=== PATIENT | male | born 1990 | race Two or more races ===

== ENCOUNTER 2023-01-16 16:22 | Emergency (ER) | payer OTHER ==
[~2023-01-16] VITALS: Ht 172.7 cm; Wt 101.8 kg
[2023-01-16 18:45] VITALS: BP 143/79
[2023-01-16] MEDS ORDERED: IBUPROFEN 800 MG TAB PO ONE (19:15)
[2023-01-16] MEDS ORDERED: IBUP800T26 PO (19:23)
== END 2023-01-16 19:38 | disposition home or self-care (01) ==
LOC: ER 16:22
DX: M25.531 Pain in right wrist (principal); X50.0XXA Overexertion from strenuous movement or load, initial encounter; Y93.89 Activity, other specified; Y92.89 Other specified places as the place of occurrence of the external cause; Y99.8 Other external cause status
CPT/HCPCS: 73110